=== PATIENT | male | born 1960 | race Caucasian/White ===

== ENCOUNTER 2021-02-21 22:15 | Emergency (ER) | payer SELFPAY ==
--- NOTE | ~2021-02-21 | XR_ITS ---
EXAMINATION: XR chest 1V portable INDICATION: Chest pain TECHNIQUE: Portable AP chest at 2319 hours COMPARISON: 08/29/2015 FINDINGS: The lungs are free of acute opacities. There is no pleural effusion or pneumothorax. The ca rdiomediastinal silhouette is normal. There is mild osteoarthritis of the shoulders. IMPRESSION: 1. No acute cardiopulmonary abnormality. Reviewed, dictated and finalized at location A.
--- NOTE | ~2021-02-21 | CT_ITS ---
EXAMINATION: CT brain wo con INDICATION: Left arm and left facial numbness COMPARISON: None TECHNIQUE: Standard unenhanced head CT. The dose-length product (DLP) was 681.00 mGy-cm. The mA was a djusted according to patient size. Iterative reconstruction technique was employed. FINDINGS: There is no intracranial hemorrhage, acute infarction, or abnormal mass lesion. The ventric les are normal. There is no abnormal mass effect or midline shift. The hudson-white matter differentiat ion is normal. The basal cisterns are patent. The orbits are normal. The paranasal sinuses, mastoids and calvarium are normal. IMPRESSION: 1. No acute intracranial abnormality. Reviewed, dictated and finalized at location A.
--- NOTE | ~2021-02-21 | CT_ITS ---
EXAMINATION: CTA chest PE protocol DATE: 02/22/2021 02:01 INDICATION: Chest pain TECHNIQUE: Computed tomography angiography (CTA) of the chest was performed with 100 mL Omnipaque-350 intravenous contrast timed to evaluate the pulmonary arteries. Coronal maximum intensity projection 3D-reconstructions were created by the technologist. The dose-length product (DLP) was 892.53 mGy-cm. Automated exposure control and iterative reconstruction technique were employed. COMPARISON: None. FINDINGS: The pulmonary arteries are well-opacified. No pulmonary embolism is identified. There is mi ld dependent atelectasis. No focal airspace opacities are identified. There is no pleural effusion or pneumothorax. No pathologically enlarged thoracic lymph nodes are identified. The heart size is norm al. Calcified coronary artery atherosclerosis is noted. There is mild thoracic spondylosis. The liver is diffusely low in attenuation when compared with the spleen, consistent with hepatic steatosis. St ones are present in the gallbladder. IMPRESSION: 1. No pulmonary embolism. 2. Coronary artery disease. 3. Cholelithiasis. Reviewed, dictated and finalized at location A.
[2021-02-21 22:11] VITALS: BP 178/99; PULSE 84; RESP 17; TEMP 36.5; O2SAT 94
[2021-02-21 22:24] VITALS: PULSE 76
--- NOTE | 2021-02-21 22:56 | ECG_ITS ---
Measurements Intervals [place] Rate: 79 P: 56 DE: 155 QRS: -30 QRSD: 89 T: 30 QT: 351 QTc: 403 Interpretive Statements SINUS RHYTHM BORDERLINE R WAVE PROGRESSION, ANTERIOR LEADS BASELINE WANDER- I, III BORDERLINE ECG Electronically Signed On 02-22-2021 7:33:04 CDT by Marcos Arevalo D.O.
--- NOTE | 2021-02-21 23:05 | ED.GENADULT ---
HPI - General Adult General Chief complaint: Chest Pain Stated complaint: CP Time Seen by Provider: 02/21/21 22:36 History of Present Illness HPI narrative: Patient is a 56-year-old gentleman who presents to the emergency department with chief complaint of chest pain patient reports this evening he started having pain in the middle portion of his chest described as a pressure-like sensation tightness patient reports radiates to his arm and into his neck patient also reports he has had some numbness and tingling in his left arm and left side of his face with this as well. Patient denies any focal motor deficits denies any ripping sensation. Patient denies prior history of cardiac disease reports he has had a stress test in the past reports that he has hypertension and borderline diabetes. Related Data Home Medications Medication Instructions Recorded Confirmed esomeprazole magnesium 40 mg 40 mg PO DAILY 10/09/19 10/22/20 capsule,delayed release Allergies Allergy/AdvReac Type Severity Reaction Status Date / Time No Known Allergies Allergy Verified 10/22/20 14:05 Review of Systems Review of Systems: Narrative: A 10 system review of systems was completed on the patient and is negative except for what is stated in the HPI. Nursing and ancillary documentation was reviewed. [facility] Family History Family History Father Patient's father is Acute myocardial infarction Social History Social History Smoking packs per day: 1 Smoking cigarettes per day: 20.0 Years smoked: 45 Smoking pack-years: 45.00 Smoking status: Former smoker Second hand tobacco smoke exposure: No Smoking end date: 11/28/17 Alcohol intake: current Comments Patient has past medical history significant for hypertension GERD, borderline diabetes Exam Narrative: Exam Narrative: GENERAL: Well-appearing, well-nourished, and in no acute distress. HEAD: Normocephalic, atraumatic. EYES: PERRLA and EOMI. ENT: Nares clear, no rhinorrhea or epistaxis. Mucous membranes moist. NECK: Supple. CHEST: Clear to auscultation. No respiratory distress. HEART: Regular rate and rhythm. No murmur heard. Normal peripheral pulses. ABDOMEN: Soft, nontender, nondistended, normal active bowel sounds. EXTREMITIES: Normal range of motion. No edema. SKIN: Warm, dry, no rash. NEURO: No focal deficits. Alert and oriented x3. PSYCH: Normal mood and affect. Course Course Emergency Course: EKG shows sinus rhythm rate of [address] elevation or ST depression CT head showed no evidence of acute abnormality CTA of the chest showed no evidence of pulmonary embolism 2 cardiac troponins were obtained which were negative It was discussed with the patient admission for observation versus short-term follow-up and the patient is opted Vital Signs Vital signs: Vital Signs Temperature 36.5 C 02/21/21 22:11 Pulse Rate 84 02/21/21 22:11 Respiratory Rate 17 02/21/21 22:11 Blood Pressure 178/99 H 02/21/21 22:11 Pulse Oximetry 94 02/21/21 22:11 Temperature 36.5 C 02/21/21 22:11 Pulse Rate 82 02/22/21 02:13 Respiratory Rate 18 02/22/21 02:13 Blood Pressure 154/71 H 02/22/21 02:13 Pulse Oximetry 100 02/22/21 02:13 Medical Decision Making Vital Signs Vital Signs: Vital Signs Temperature 36.5 C 02/21/21 22:11 Pulse Rate 84 02/21/21 22:11 Respiratory Rate 17 02/21/21 22:11 Blood Pressure 178/99 H 02/21/21 22:11 Pulse Oximetry 94 02/21/21 22:11 Temperature 36.5 C 02/21/21 22:11 Pulse Rate 82 02/22/21 02:13 Respiratory Rate 18 02/22/21 02:13 Blood Pressure 154/71 H 02/22/21 02:13 Pulse Oximetry 100 02/22/21 02:13 Lab Data Result diagrams: 02/21/21 23:10 02/21/21 23:10 Labs: Lab Results 02/21/21 02/21/21 02/21/21 Range/
[2021-02-21 23:24] LABS: Basophils Absolute Auto 0.1 K/mm3 (0.0-0.1); Basophils Percent Auto 0.6 % (0.2-1.2); Eosinophils Absolute Auto 0.2 K/mm3 (0-0.3); Eosinophils Percent Auto 1.4 % (0-4.4); Hematocrit 39.1 % (42.0-52.0); Hemoglobin 13.4 g/dL (14.0-18.0); Immature Granulocyte Absolute 0.05 K/mm3 (0.00-0.031); Immature Granulocyte Percent A 0.4 % (0-0.5); Lymphocytes Absolute Auto 3.19 K/mm3 (0.9-3.2); Lymphocytes Percent Auto 28.6 % (18.3-44.2); Mean Corpuscular HGB Conc 34.3 g/dl (32-36); Mean Corpuscular Hemoglobin 29.2 pg (26-34); Mean Corpuscular Volume 85.2 fl (80-100); Mean Platelet Volume 9.8 fl (7.4-10.4); Monocytes Absolute Auto 0.8 K/mm3 (0.1-0.6); Monocytes Percent Auto 6.9 % (2.6-8.5); Neutrophils Absolute Auto 6.9 K/mm3 (1.3-6.7); Neutrophils Percent Auto 62.1 % (45.5-73.1); Platelet Count Result 269 k/mm3 (150-375); Red Blood Count 4.59 M/mm3 (4.6-6.20); Red Cell Distribution Width 12.8 % (11.5-14.5); White Blood Count 11.1 K/mm3 (4.5-10.0)
[2021-02-21 23:29] LABS: INR 0.8
[2021-02-21 23:30] LABS: Alanine Aminotransferase 18 U/L (4-50); Albumin Level 3.9 g/dL (3.5-5.1); Alkaline Phosphatase 55 U/L (38-126); Anion Gap 6 mmol/L (8-16); Aspartate Amino Transferase 23 U/L (17-59); Bilirubin,Total 0.4 mg/dL (0.2-1.3); Blood Urea Nitrogen 23 mg/dL (9-20); Calcium 9.1 mg/dL (8.4-10.2); Carbon Dioxide 26 mmol/L (22-30); Chloride 106 mmol/L (98-107); Estimated CRCL calculation 91 ml/min; Estimated Glomerular Filt Rate > 60; Glucose 139 mg/dL (75-110); Lipase 101 U/L (23-300); Partial Thromboplastin Time 31.7 SECONDS (22.3-36.8); Potassium 3.8 mmol/L (3.4-5.0); Sodium 138 mmol/L (137-145)
[2021-02-21] MEDS: ONDANSETRON INJ 4 MG/2 ML VIAL IV PUSH (23:33)
[2021-02-21] MEDS: MORPHINE SULFATE (*CRX) 4 MG/ML INJ IV PUSH (23:34)
[2021-02-21 23:42] LABS: Troponin I < 0.012 ng/mL (0.000-0.034)
--- NOTE | 2021-02-21 23:45 | PC.NURSE ---
Pt. refusing nitro at this time. ERP notified.
--- NOTE | 2021-02-21 23:46 | PC.NURSE ---
Pt. provided with urinal.
[2021-02-21 23:56] VITALS: BP 150/85; PULSE 70; RESP 18; O2SAT 97
--- NOTE | 2021-02-22 | PC.NURSE ---
pt not able to give urine sample at this time. urinal at bedside. refused straight cath.
[2021-02-22] MEDS: PROCHLORPERAZINE EDISYLATE 10 MG/2 ML VIAL IV PUSH (00:26)
--- NOTE | 2021-02-22 00:29 | PC.NURSE ---
pt given update on lab values. pt states chest tightness decreased to 3/10. states hes more nauseated than anything. pt given compazine. pt reminded that we need urine sample, urinal still at bedside.
--- NOTE | 2021-02-22 00:45 | PC.NURSE ---
pt called out, stating he feels as if hes having an anxiety attack. states hes restless & dizzy. md notified.
[2021-02-22] MEDS: LORazepam INJ (*CRX) 2 MG/ML VIAL 0.5 MG IV PUSH (00:54)
[2021-02-22 01:25] VITALS: BP 160/79; PULSE 75; RESP 18; O2SAT 98
[2021-02-22 02:12] LABS: Troponin I < 0.012 ng/mL (0.000-0.034)
[2021-02-22 02:13] VITALS: BP 154/71; PULSE 82; RESP 18; O2SAT 100
[2021-02-22 03:22] VITALS: BP 143/78; PULSE 89; RESP 18; O2SAT 100
== END 2021-02-22 03:25 | disposition home or self-care (01) ==
PROVIDERS: Emergency Provider Emergency Medicine; PCP Internal Medicine
DX: R07.89 Other chest pain (principal); I10 Essential (primary) hypertension; R73.03 Prediabetes; Z87.891 Personal history of nicotine dependence; R94.31 Abnormal electrocardiogram [ECG] [EKG]; I25.10 Atherosclerotic heart disease of native coronary artery without angina pectoris; K80.20 Calculus of gallbladder without cholecystitis without obstruction
CPT/HCPCS: 36415; 70450; 71045; 71275; 80053; 83690; 84484; 85025; 85610; 85730; 93005; 96374; 96375; 99284; J0780; J2060; J2270; J2405; Q9967

== ENCOUNTER 2022-06-16 10:31 | Outpatient (CLI) | payer BC, SELFPAY ==
--- NOTE | ~2022-06-16 | CT_ITS ---
EXAMINATION:CT lung screening DATE: 06/16/2022 11:48 INDICATION: Tobacco use. Smoker who quit 3 years ago with 40 pack year history. TECHNIQUE: Computed tomography (CT) of the chest was performed without intravenous contrast. Automate d exposure control and iterative reconstruction technique were employed. The dose-length product (DLP ) was 263.31 mGy-cm. COMPARISON: Chest CT 02/22/2021 FINDINGS: There is minimal atelectasis bilaterally. Calcified left lung nodules and calcified left hi lar lymph nodes are consistent with old granulomatous disease. No pleural effusion. The heart size is normal. There are coronary artery calcifications. No pericardial effusion. There is ectasia of ascen ding aorta measuring 4.1 cm. There is mild thoracic spondylosis. IMPRESSION: 1. Lung-RADS category 1: Negative. Continue annual screening with noncontrast low-dose chest CT in 12 months. Reviewed, dictated and finalized at location A. IMPRESSION: 1. Lung-RADS category 1: Negative. Continue annual screening with noncontrast l ow-dose chest CT in 12 months.
== END 2022-06-16 10:32 | disposition home or self-care (01) ==
PROVIDERS: PCP Internal Medicine; Visit Provider Physician Assistant
DX: Z12.2 Encounter for screening for malignant neoplasm of respiratory organs (principal); Z87.891 Personal history of nicotine dependence; M47.814 Spondylosis without myelopathy or radiculopathy, thoracic region
CPT/HCPCS: 71271

== ENCOUNTER → 2022-06-25 08:05 | Outpatient (CLI) | payer BC, SELFPAY ==
--- NOTE | ~2022-06-25 | MR_ITS ---
EXAMINATION: MR lumbar spine wo con DATE: 06/25/2022 08:37 INDICATION: Lumbar radiculopathy TECHNIQUE: Magnetic resonance imaging (MRI) of the lumbar spine was performed without intravenous con trast. Sequences included sagittal T2-weighted FSE, sagittal T2-weighted FS FSE, sagittal T1-weighted FSE, and axial T2-weighted FSE. COMPARISON: None FINDINGS: 5 mm retrolisthesis L4 on L5. 3 mm retrolisthesis L5 on S1. One-2 mm anterolisthesis L3 on L4. Verteb ral body heights are normal. Mild fibrofatty degenerative endplate changes at L4-L5 and L5-S1. Marrow signal is otherwise normal. Mild disc height loss at L3-L4 and L5-S1 and moderate disc height loss a t L4-L5. The conus medullaris terminates at L1. There is normal signal in the caudal spinal cord. Par avertebral soft tissues are unremarkable. The following disc levels are specifically discussed: T12-L1: Disc is minimally bulging. There is mild bilateral facet joint osteoarthritis. There is no ne ural foraminal stenosis. There is no central canal stenosis. L1-L2: The disc does not extend beyond the endplate margin. There is mild bilateral facet joint osteo arthritis. There is no neural foraminal stenosis. There is no central canal stenosis. L2-L3: The disc does not extend beyond the endplate margin. There is mild bilateral facet joint osteo arthritis. There is no neural foraminal stenosis. There is no central canal stenosis. L3-L4: The disc does not extend beyond the more posterior L4 endplate. There is moderate bilateral fa cet joint osteoarthritis. There is no neural foraminal stenosis. There is no central canal stenosis. L4-L5: Disc is bulging. There is minimal bilateral facet joint osteoarthritis. There is mild bilatera l neural foraminal stenosis. There is mild central canal stenosis. L5-S1: Disc is bulging, eccentric to the right. There is moderate bilateral facet joint osteoarthriti s. There is mild to moderate bilateral neural foraminal stenosis. There is minimal central canal sten osis along with mild narrowing of the right lateral recess. IMPRESSION: 1. Moderate lower lumbar spondylosis. Reviewed, dictated and finalized at location A.
== END ==
PROVIDERS: PCP Internal Medicine; Visit Provider Nurse Practitioner Family
DX: M47.25 Other spondylosis with radiculopathy, thoracolumbar region (principal); M48.05 Spinal stenosis, thoracolumbar region; M47.27 Other spondylosis with radiculopathy, lumbosacral region; M48.07 Spinal stenosis, lumbosacral region
CPT/HCPCS: 72148

== ENCOUNTER 2022-11-25 07:58 | Outpatient (CLI) | payer BC, SELFPAY ==
--- NOTE | 2022-12-16 23:29 | WPDSLEEPSTUD ---
Sleep Study Date of Study: 11/25/22 Ordering Provider: ALEJO Dyer Interpreting Physician: Kaylynn Roberts MD Sleep Study Type: Split Polysomnogram Height: 1.8 m Weight: 113.852 kg Body Mass Index: 34.9 Neck Circumference (inches): 19.5 [place]: 19 Reason for Sleep Study Excessive daytime sleepiness Sleep History Juanito Monroy is a 62-year-old man who had a stroke with residual numbness and discomfort on the left side of his body. He also has chronic back problems. He has received injections and pain medications to manage this. He falls asleep frequently during the day, and he may have brief episodes of sleep lasting only a few seconds. This is been going on for a couple of years. He occasionally awakens from sleep feeling short of breath. He does not awaken at night with heartburn, belching or coughing. He frequently snores, occasionally loudly enough that others complain. He occasionally has trouble sleeping with a cold. He does not gasp for breath at night. He does not have breathing problems at night observed by others. He does not sweat excessively at night. He does not notice his heart pounding or beating irregularly at night. He frequently falls asleep during the day, frequently falls asleep involuntarily and rarely falls asleep while driving. He does not have loss of muscle tone with strong emotion. He occasionally has daytime difficulties due to excessive sleepiness. He does not feel paralyzed on waking or falling asleep and does not have vivid dreamlike scenes on waking or falling asleep. He does not feel afraid to go to sleep. He rarely has nightmares. He occasionally remembers his dreams. He occasionally has racing thoughts. He occasionally feels sad or depressed. He rarely feels anxious. He constantly has muscular tension. He occasionally notices parts of his body jerking. He rarely kicks at night. He constantly has crawling and aching feelings in his legs as well as leg pain during the night. He never has morning jaw pain. He frequently grinds his teeth during sleep. He constantly is bothered by pain during the day. He occasionally is awakened by pain at night. He constantly wakes up feeling stiff in the morning with sore achy muscles. He frequently wakes up with pain in the neck and spine. He has dizziness, fatigue, memory problems and he takes antacids regularly. He reports a 30 lb weight gain in the last year. Normal bedtime is 10:00 p.m. falling asleep within 10 minutes. He typically wakes 1 time during the night to urinate. He is able to return to sleep within 10 minutes. He wakes the morning at 6:00 a.m.. On weekends he goes to bed an hour later, 11:00 p.m. and he wakes an hour later, 7:00 a.m.. He takes naps in the afternoon or evening. A short nap lasting 10 or 15 minutes is not refreshing. He is usually drowsy for an hour after waking. He feels better in the late morning and early afternoon compared to other times of day. Habits: Never smoked tobacco. Caffeine 4 servings a day. No alcohol or recreational substances. [facility] Past Medical History Medical History Anemia, unspecified Anxiety BPH associated with nocturia Chronic low back pain CVA (cerebral vascular accident) Essential (primary) hypertension Eustachian tube dysfunction Gastro-esophageal reflux disease without esophagitis Hx of ischemic right [employer] stroke Hypersomnia, unspecified Hypogonadism in male Low testosterone Obesity (BMI 30.0-34.9) Palpitations Pure hypercholesterolemia Testicular hypofunction Tinea versicolor Surgical History Surgical History History of right-sided carotid endarterectomy Family History Family History Father Patient's father is Acute myocardial infarction Heart problem Grandparent Diabetes me
[2022-12-17 00:16] VITALS: BMI 34.9
== END 2022-11-26 07:18 | disposition home or self-care (01) ==
LOC: ANHCSM 08:00
PROVIDERS: PCP Internal Medicine; Visit Provider Physician Assistant
DX: G47.33 Obstructive sleep apnea (adult) (pediatric) (principal); G47.10 Hypersomnia, unspecified; Z68.35 Body mass index [BMI] 35.0-35.9, adult
CPT/HCPCS: 95810; 95811

== ENCOUNTER 2023-05-24 12:24 | Outpatient (CLI) | payer BC, SELFPAY ==
--- NOTE | ~2023-05-24 | MR_ITS ---
MRI of the lumbar spine Clinical History: Back pain Technique: Axial T2-weighted images, and sagittal T1-weighted, T2-weighted, and and T2 fat-sat images were acquired. COMPARISON: 06/25/2022 Findings: No acute fracture identified. Stable minimal grade 1 retrolisthesis of L4 over L5. No suspi cious bone marrow signal abnormality seen. At L1-L2 and L2-L3, intervertebral discs maintain normal signal and position. No disc bulge or hernia tion at these levels. There is minimal facet joint hypertrophy at these levels. No spinal canal steno sis or neural foraminal narrowing at these levels. At L3-L4, there is mild disc desiccation with mild to moderate facet arthropathy. No disc bulge or he rniation. No spinal canal stenosis or neural foraminal narrowing. At L4-L5, there is moderate degenerative disc narrowing. There is mild diffuse disc bulge with mild f acet arthropathy. No central canal stenosis or significant neural foraminal narrowing. At L5-S1, there is mild disc bulge, especially the right paracentral to right foraminal region, with moderate facet arthropathy. Possible minimal bilateral neural foraminal narrowing. Paravertebral soft tissues are unremarkable. Impression: Minimal degenerative spondylosis, as detailed above. Stable minimal grade 1 retrolisthesis of L4 over L5. Reviewed, dictated and finalized at [facility]. Impression: Minimal degenerative spondylosis, as detailed above. Stable minimal grade 1 retrolisthesis of L4 over L5.
== END 2023-05-24 12:25 | disposition home or self-care (01) ==
PROVIDERS: PCP Internal Medicine; Visit Provider Internal Medicine
DX: M47.896 Other spondylosis, lumbar region (principal)
CPT/HCPCS: 72148

== ENCOUNTER 2023-06-20 14:16 | Outpatient (CLI) | payer BC, SELFPAY ==
--- NOTE | ~2023-06-20 | CT_ITS ---
CT Scan of the Chest without Contrast: Clinical Indication: Lung cancer screening, smoking history Technique: Contiguous sections were acquired throughout the chest without intravenous contrast. Dose reduction technique was used on this scan by utilizing automated exposure control and iterative recon struction technique. The dose-length product (DLP) was 249.46 mGy-cm. COMPARISON: 06/16/2022 and 02/14/2021 Findings: There is no evidence of any significant mediastinal, hilar or axillary lymphadenopathy. Coronary adan ry calcifications are present. There is no evidence of pleural or pericardial effusion. The lungs are clear. No pulmonary nodules or infiltrates are noted. Images through the upper abdomen reveal calcified gallstones, partially imaged. Impression: Lung RADS 1: Negative. [address] advised. Cholelithiasis. Reviewed, dictated and finalized at [facility]. Impression: Lung RADS 1: Negative. [address] advised. Cholelithiasis.
== END 2023-06-20 14:17 | disposition home or self-care (01) ==
PROVIDERS: PCP Internal Medicine; Visit Provider Nurse Practitioner Family
DX: Z12.2 Encounter for screening for malignant neoplasm of respiratory organs (principal); Z87.891 Personal history of nicotine dependence
CPT/HCPCS: 71271

== ENCOUNTER 2024-04-18 16:18 | Outpatient (CLI) | payer BC, SELFPAY ==
--- NOTE | ~2024-04-18 | XR_ITS ---
XR shoulder LT min 2V DATE: 04/18/2024 16:29 INDICATION: Left shoulder pain TECHNIQUE: 4 views COMPARISON: None FINDINGS: There is prominent joint space narrowing and spurring of the glenohumeral joint consistent with prominent glenohumeral osteoarthritis. There is mild degenerative change at the left acromiocoracoid joint. Osteopenia. No fracture, dislocation, periosteal reaction or bone destruction or abnormal left shoulder soft tiss ue calcification. IMPRESSION: Prominent glenohumeral joint osteoarthritis Osteopenia Reviewed, dictated and finalized at location B.
== END 2024-04-18 16:19 ==
PROVIDERS: PCP Physician Assistant; Visit Provider Nurse Practitioner Family
DX: M19.012 Primary osteoarthritis, left shoulder (principal); M85.89 Other specified disorders of bone density and structure, multiple sites
CPT/HCPCS: 73030

== ENCOUNTER 2024-06-21 09:43 | Outpatient (CLI) | payer BC, SELFPAY ==
--- NOTE | ~2024-06-21 | CT_ITS ---
EXAMINATION: CT lung screening DATE: 06/21/2024 10:13 INDICATION: Personal history of nicotine dependence TECHNIQUE: Computed tomography (CT) of the chest was performed without intravenous contrast. The dose -length product was 336.91 mGy-cm. Automated exposure control and iterative reconstruction technique were employed. COMPARISON: CT dated 06/20/2023 FINDINGS: No significant pleural or pericardial effusion. Heart size normal. No thoracic lymphadenopa thy. There is atherosclerosis of the aorta and coronary arteries. There are gallstones. There is 2 mm left upper lobe nodule. There are a few calcified granulomas of the left midlung. No endobronchial l esions. No pneumothorax. Left basilar atelectasis. IMPRESSION: 1. Lung-RADS category 2: Benign appearance or behavior. Continue annual screening with noncontrast lo w-dose chest CT in 12 months. Reviewed, dictated and finalized at location B. IMPRESSION: 1. Lung-RADS category 2: Benign appearance or behavior. Continue annual screeni ng with noncontrast low-dose chest CT in 12 months.
== END 2024-06-21 09:44 | disposition home or self-care (01) ==
PROVIDERS: PCP Physician Assistant; Visit Provider Internal Medicine Critical Care Medicine
DX: Z12.2 Encounter for screening for malignant neoplasm of respiratory organs (principal); Z87.891 Personal history of nicotine dependence
CPT/HCPCS: 71271